=== PATIENT | female | born 1955 | race Caucasian/White ===

== ENCOUNTER → 2018-07-23 10:03 | Outpatient (CLI) | payer MEDICARE ==
[2014-07-11 11:01] VITALS: BMI 72.0
[~2018-07-23 10:03] MED LIST: BAYER CHEWABLE81 MG PO; HYDROCODONE-APA1 TAB PO; LASIX20 MG PO; LIPITOR40 MG PO; SYNTHROID175 MCG PO; ZESTRIL20 MG PO
== END | disposition home or self-care (01) ==
LOC: D.US 10:03
PROVIDERS: ATTEND Family Medicine
DX: N20.0 Calculus of kidney (principal)